=== PATIENT | female | born 1970 | race Caucasian/White ===

== ENCOUNTER 2017-07-14 10:00 | Emergency (ER) | payer MEDICAID | END 2017-07-14 10:10 | disposition home or self-care (01) | LOC: E/R 10:00 | DX: L02.411 Cutaneous abscess of right axilla (principal) | CPT/HCPCS: 99284; Z7502 ==

== ENCOUNTER 2018-08-25 08:50 | Emergency (ER) | payer MEDICAID ==
[2018-08-25] MEDS: POLYMYXIN/TRIMETHOPRIM 10 ML OPH BOTH EYES (09:36)
== END 2018-08-25 09:41 | disposition home or self-care (01) ==
LOC: FTE 08:50
DX: H10.33 Unspecified acute conjunctivitis, bilateral (principal); H66.91 Otitis media, unspecified, right ear
CPT/HCPCS: 99283; Z7502

== ENCOUNTER 2018-09-08 11:57 | Emergency (ER) | payer MEDICAID | END 2018-09-08 13:19 | disposition home or self-care (01) | LOC: E/R 11:57 | DX: J06.9 Acute upper respiratory infection, unspecified (principal); H66.91 Otitis media, unspecified, right ear | CPT/HCPCS: 99283; Z7502 ==